=== PATIENT | female | born 1960 | race Caucasian/White ===

== ENCOUNTER 2018-06-14 18:31 | Emergency (ER) | payer OTHER ==
[2018-06-14] MEDS ORDERED: Sodium Chloride 0.9% 1,000 ML IV STA (22:30)
--- NOTE | 2018-06-14 23:10 | ED PDOC ---
HPI: General Adult Time Seen by Provider: 06/14/18 21:54 Chief Complaint (Nursing): Flu-like Symptoms History Per: Patient History/Exam Limitations: no limitations Onset/Duration Of Symptoms: Hrs Additional Complaint(s): Hx of HTN presenting with fever x 2 -3 days. Patient states that she has pain all over her body and cannot specify if there is pain in one part worse than another. States she has had fevers at home, cough, congestion, runny nose as well. 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 Past Medical History Reviewed: Historical Data, Nursing Documentation, Vital Signs Vital Signs: Last Vital Signs Temp 103 F H 06/14/18 22:45 Pulse 84 06/14/18 18:41 Resp 18 06/14/18 18:41 BP 119/75 06/14/18 18:41 Pulse Ox 99 06/14/18 18:41 - Medical History PMH: HTN - Surgical History Surgical History: Appendectomy - Family History Family History: States: Unknown Family Hx - Immunization History Hx Tetanus Toxoid Vaccination: No Hx Influenza Vaccination: No Hx Pneumococcal Vaccination: No - Home Medications Home Medications: Ambulatory Orders Medication Instructions Recorded Naproxen [Naprosyn] 1 tab PO BID PRN #25 tab 06/05/18 Ibuprofen [Motrin Tab] 600 mg PO Q6 #30 tab 06/15/18 Oseltamivir Phosphate [Tamiflu] 75 mg PO BID 5 Days #10 capsule 06/15/18 - Allergies Allergies/Adverse Reactions: Allergies Allergy/AdvReac Type Severity Reaction Status Date / Time No Known Allergies Allergy Unverified 06/14/18 18:45 Review of Systems ROS Statement: Except As Marked, All Systems Reviewed And Found Negative Constitutional: Positive for: Fever, Chills ENT: Positive for: Nose Congestion Respiratory: Positive for: Cough Gastrointestinal: Negative for: Nausea, Vomiting Genitourinary Female: Negative for: Dysuria, Frequency Physical Exam - Reviewed Nursing Documentation Reviewed: Yes Vital Signs Reviewed: Yes - Physical Exam Appears: Positive for: Non-toxic, No Acute Distress, Uncomfortable (Crying) Head Exam: Positive for: ATRAUMATIC, NORMAL INSPECTION, NORMOCEPHALIC Skin: Positive for: Normal Color, Warm, DRY Eye Exam: Positive for: EOMI, Normal appearance, PERRL ENT: Positive for: Normal ENT Inspection Neck: Positive for: Normal, Painless ROM Cardiovascular/Chest: Positive for: Regular Rate, Rhythm Respiratory: Positive for: CNT, Normal Breath Sounds Gastrointestinal/Abdominal: Positive for: Normal Exam, Soft. 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 Negative for: Motor/Sensory Deficits - Laboratory Results Result Diagrams: 06/14/18 23:44 06/14/18 23:44 - ECG O2 Sat by Pulse Oximetry: 99 Pulse Ox Interpretation: Normal Medical Decision Making Medical Decision MakinPM Patient presenting with fever, congestion, bodyaches --Patient febrile, BP and HR normal --PAtient has non-specific symptoms --Differential includes but not limited to: URI, PNA, Bronchitis, Influenza, UTI --Will check labs, CXR --Will hydrate, provide NSAID and APAP --Will continue to monitor 1AM --Patient is significantly improved --Very well appearing, eating pizza --Vitals improved --Will treat empircally for the flu --Advised rest, fluids, and followup with PMD Disposition - Clinical Impression Clinical Impression: Influenza-like symptoms - Disposition Referrals: Suyapa Calle MD [Medical Doctor] - Disposition: Routine/Home Disposition Time: 01:08 Condition: STABLE Prescriptions: Ibuprofen [Motrin Tab] 600 mg PO Q6 #30 tab Oseltamivir Phosphate [Tamiflu] 75 mg PO BID 5 Days #10 capsule Instructions: Flu Forms: [email or web address] (Danish)
[2018-06-14 23:50] LABS: VENOUS BLOOD GAS BASE EXCESS 1.4 mmol/L (0.0-2.0); VENOUS BLOOD GAS PCO2 35 mmHg (40-60); VENOUS BLOOD GAS PO2 37 mm/Hg (30-55); VENOUS BLOOD PH 7.46 (7.32-7.43)
[2018-06-14 23:53] LABS: BASO % 0.5 % (0.0-2.0); EOS # 0.1 K/uL (0.0-0.7); EOS % 1.1 % (0.0-4.0); HEMOGLOBIN 11.1 g/dL (12.0-16.0); LYMPH # 1.4 K/uL (1.0-4.3); LYMPH % 17.4 % (20.0-40.0); MEAN CELL VOLUME 78.7 fl (81.0-99.0); MEAN CORPUSCULAR HEMOGLOBIN 25.8 pg (27.0-31.0); MEAN CORPUSCULAR HGB CONC 32.8 g/dL (33.0-37.0); MEAN PLATELET VOLUME 8.2 fl (7.2-11.7); MONO # 0.7 K/uL (0.0-0.8); MONO % 8.5 % (0.0-10.0); NEUT # 5.9 K/uL (1.8-7.0); NEUT % 72.5 % (50.0-75.0); RBC 4.29 Mil/uL (3.80-5.20); RED CELL DISTRIBUTION WIDTH 13.5 % (11.5-14.5); WHITE BLOOD COUNT 8.2 K/uL (4.8-10.8)
[2018-06-15 00:02] LABS: BLOOD UREA NITROGEN 15 mg/dl (7-17); CALCIUM 8.9 mg/dL (8.4-10.2); GFR NON-AFRICAN AMERICAN > 60
[2018-06-15 02:12] VITALS: BP 107/55; PULSE 96; RESP 16; TEMP 99.5; O2SAT 97
--- NOTE | 2018-06-15 10:20 | RAD ---
Date of service: 06/14/2018 HISTORY: fever, bodyaches COMPARISON: No prior. FINDINGS: LUNGS: The lungs are well inflated and clear. PLEURA: No pleural effusions or pneumothorax. CARDIOVASCULAR: The heart is normal in size. No aortic atherosclerotic calcification present. OSSEOUS STRUCTURES: Within normal limits for the patient's age. VISUALIZED UPPER ABDOMEN: Normal. OTHER FINDINGS: None. IMPRESSION: No active pulmonary disease.
== END 2018-06-15 02:10 | disposition home or self-care (01) ==
LOC: H.ER 18:31
DX: J11.1 Influenza due to unidentified influenza virus with other respiratory manifestations (principal); I10 Essential (primary) hypertension
CPT/HCPCS: 71045; 80048; 82803; 85025; 87040; 87804; 96360; 96374; 99284; J1885; J7030